=== PATIENT | female | born 1980 | race Caucasian/White ===

== ENCOUNTER 2016-11-03 08:56 | Emergency (ER) | payer OTHER ==
[~2016-11-03] VITALS: Ht 152.4 cm; Wt 59.0 kg
[2016-11-03 09:59] LABS: URINE SOURCE CLEAN CATCH
[2016-11-03 10:19] LABS: URINE APPEARANCE CLOUDY; URINE BLOOD 1+ (NEG); URINE COLOR DK YELLOW; URINE GLUCOSE NEG (NEG); URINE KETONE NEG (NEG); URINE LEUKOCYTE ESTERASE 1+ (NEG); URINE NITRATE POS (NEG); URINE PROTEIN TRACE (NEG); URINE SPECIFIC GRAVITY 1.026 (1.003-1.035)
[2016-11-03 10:22] LABS: CULTURE INDICATED? YES; URINE BACTERIA AUWI 4+ (NEGATIVE); URINE SQUAMOUS EPITHELIAL CELL OCC /[HPF]; UWBCS1 AUWI 25-50 (0-5)
[2016-11-03 10:39] LABS: URINE BILIRUBIN NEG (NEG)
[2016-11-03 10:45] LABS: URINE CRYSTALS OTHER /[HPF]
== END 2016-11-03 11:26 | disposition home or self-care (01) ==
LOC: CED 08:56
PROVIDERS: Physician Assistant
DX: B86 Scabies (principal); N39.0 Urinary tract infection, site not specified; Z86.19 Personal history of other infectious and parasitic diseases
CPT/HCPCS: 81003; 87086; 87088; 87186; 99283